=== PATIENT | male | born 1940 | race Caucasian/White ===

== ENCOUNTER 2020-07-22 20:20 | Inpatient (IN) | payer OTHER, MEDICARE ==
[2020-07-22] MEDS ORDERED: DEXAMETHASONE 4 MG TABLET (FP) PO ONE (21:04)
[2020-07-22 21:42] LABS: BASO % 0.3 % (0-2.0); HEMATOCRIT 43.9 % (35.4-49); HEMOGLOBIN 15.1 GM/dL (11.7-16.9); LYMPH % 6.2 % (8-40); MCH 30.4 pg (25.7-33.7); MCHC 34.5 g/dl (32.0-35.9); MEAN PLT VOLUME 7.6 fl (7.5-11.1); MONO % 5.7 % (3.8-10.2); NEUT % 87.8 % (42.8-82.8); PLATELET COUNT 213 K/MM3 (134-434); RBC 4.99 M/mm3 (4.00-5.60); RDW 13.2 % (11.9-15.9); WHITE BLOOD COUNT 7.6 K/mm3 (4.0-10.0)
[2020-07-22 21:47] LABS: INR 1.24 (0.83-1.09); PROTHROMBIN TIME (PATIENT) 14.9 SEC (9.7-13.0)
[2020-07-22 21:50] LABS: ACTIVATED PTT 29.3 SECONDS (25.2-36.5)
[2020-07-22 22:03] LABS: ALBUMIN 2.9 g/dl (3.4-5.0); BLOOD UREA NITROGEN 28.6 mg/dL (7-18)
[2020-07-22 22:06] LABS: CREATININE 1.1 mg/dL (0.55-1.3)
[2020-07-22 22:08] LABS: BILIRUBIN,TOTAL 1.2 mg/dL (0.2-1); TOT PROT 7.5 g/dl (6.4-8.2)
[2020-07-22] MEDS ORDERED: LACTATED RINGERS SOLUTION 1000 ML INFUS.BAG IV ONE (22:49)
[2020-07-23] MEDS ORDERED: AZITHROMYCIN IVPB 250 MG in DEXTROSE 5%-WATER - 250 ML IVPB ONE ×2 (00:30→16:29)
[2020-07-23] MEDS ORDERED: AZITHROMYCIN IVPB 500 MG/250 ML BAG IVPB ONE (01:17)
[2020-07-23 01:20] LABS: EPI CELLS 6 /uL (0-25.1); HYALINE CASTS 2 /uL (0-3.1); URINE APPEARANCE CLOUDY; URINE BACTERIA 230 /uL (0-1359); URINE BILIRUBIN NEGATIVE (NEGATIVE); URINE COLOR DK YELLOW; URINE GLUCOSE (UA) NEGATIVE (NEGATIVE); URINE KETONE NEGATIVE (NEGATIVE); URINE LEUK ESTERASE NEGATIVE (NEGATIVE); URINE NITRITE NEGATIVE (NEGATIVE); URINE PROTEIN 3+ (NEGATIVE); URINE RBC 15 /uL (0-23.9); URINE UROBILINOGEN 0.2 mg/dL (0.2-1.0); URINE WBC 4 /uL (0-25.8)
[2020-07-23 02:23] LABS: VENOUS O2 SATURATION 94.8 % (70-80); VENOUS PCO2 36.4 mmHg (38-52); VENOUS PH 7.477 (7.310-7.410)
[2020-07-23] MEDS: DEXTROSE 5%-0.45% SALINE 1,000 ML IV SCH (02:31)
[2020-07-23 05:18] VITALS: BMI 30.1
[2020-07-23] MEDS ORDERED: ALBUTEROL SO4 2.5/IPRATROPIUM 0.5 INH SOL 3 ML VIAL.NEB. NEB SCH (08:00)
[2020-07-23] MEDS: ALBUTEROL SO4 HFA INHALER IH SCH ×3 (09:48→21:39)
[2020-07-23] MEDS: FAMOTIDINE 20 MG TABLET PO SCH ×2 (09:49→21:26)
[2020-07-23] MEDS: ENOXAPARIN NA (PORCINE) 40 MG/0.4 ML DISP.SYRIN SQ SCH (09:49)
[2020-07-23] MEDS ORDERED: VALSARTAN 80 MG TABLET PO SCH (10:00)
[2020-07-23] MEDS ORDERED: ENOXAPARIN NA (PORCINE) 30 MG/0.3 ML DISP.SYRIN SQ SCH (10:00)
[2020-07-23 10:13] LABS: CALCIUM 8.3 mg/dL (8.5-10.1)
[2020-07-23 10:14] LABS: ALBUMIN 2.5 g/dl (3.4-5.0); BLOOD UREA NITROGEN 25.8 mg/dL (7-18)
[2020-07-23 10:17] LABS: CREATININE 0.9 mg/dL (0.55-1.3)
[2020-07-23 10:18] LABS: BILIRUBIN,TOTAL 1.2 mg/dL (0.2-1)
[2020-07-23 10:19] LABS: TOT PROT 6.2 g/dl (6.4-8.2)
[2020-07-23] MEDS ORDERED: DEXAMETHASONE SOD PHOSPHATE 4 MG/1 ML VIAL IVPUSH ONE (15:53)
[2020-07-23] MEDS ORDERED: POTASSIUM CHLORIDE TABS 20 MEQ TABLET.ER (FP) PO ONE (16:27)
[2020-07-23] MEDS ORDERED: REMDESIVIR 200 MG in SODIUM CHLORIDE 210 ML IVPB ONE (17:00)
[2020-07-23] MEDS: guaiFENesin/D-M SUGAR-FREE/ACLHOL-FREE 118 ML BOTTLE PO PRN (17:43)
[2020-07-24] MEDS: ALBUTEROL SO4 HFA INHALER IH SCH ×3 (09:00→21:37)
[2020-07-24 09:32] LABS: BASO % 0.2 % (0-2.0); HEMATOCRIT 42.1 % (35.4-49); HEMOGLOBIN 14.6 GM/dL (11.7-16.9); MCH 30.4 pg (25.7-33.7); MCHC 34.8 g/dl (32.0-35.9); MEAN CELL VOLUME 87.3 fl (80-96); MONO % 3.2 % (3.8-10.2); NEUT % 90.6 % (42.8-82.8); PLATELET COUNT 255 K/MM3 (134-434); RBC 4.82 M/mm3 (4.00-5.60); WHITE BLOOD COUNT 13.6 K/mm3 (4.0-10.0)
[2020-07-24 09:33] LABS: BLOOD UREA NITROGEN 23.2 mg/dL (7-18); CALCIUM 8.1 mg/dL (8.5-10.1); MAGNESIUM 2.1 mg/dL (1.8-2.4)
[2020-07-24 09:36] LABS: CREATININE 0.9 mg/dL (0.55-1.3)
[2020-07-24] MEDS: DEXTROSE 5%-0.45% SALINE 1,000 ML IV SCH ×2 (10:10→21:35)
[2020-07-24] MEDS: ENOXAPARIN NA (PORCINE) 40 MG/0.4 ML DISP.SYRIN SQ SCH (10:10)
[2020-07-24] MEDS: DEXAMETHASONE SOD PHOSPHATE 4 MG/1 ML VIAL IVPUSH SCH (10:10)
[2020-07-24] MEDS: FAMOTIDINE 20 MG TABLET PO SCH ×2 (10:10→21:36)
[2020-07-24] MEDS: guaiFENesin/D-M SUGAR-FREE/ACLHOL-FREE 118 ML BOTTLE PO PRN (10:11)
[2020-07-24] MEDS ORDERED: ACETAMINOPHEN 325 MG TABLET (FP) ONE (10:23)
[2020-07-24] MEDS ORDERED: ACETAMINOPHEN 325 MG TABLET (FP) PO PRN (11:13)
[2020-07-24] MEDS: REMDESIVIR 100 MG in SODIUM CHLORIDE 230 ML IVPB SCH (17:59)
[2020-07-25] MEDS: guaiFENesin/D-M SUGAR-FREE/ACLHOL-FREE 118 ML BOTTLE PO PRN (05:51)
[2020-07-25] MEDS ORDERED: PT OWN MED DRAWER 7, Y5N ONE ×2 (06:15→18:36)
[2020-07-25 08:45] LABS: HEMATOCRIT 40.6 % (35.4-49); MCH 30.5 pg (25.7-33.7); MCHC 34.6 g/dl (32.0-35.9); MEAN CELL VOLUME 88.2 fl (80-96); MEAN PLT VOLUME 7.8 fl (7.5-11.1); PLATELET COUNT 235 K/MM3 (134-434); RDW 13.1 % (11.9-15.9); WHITE BLOOD COUNT 9.7 K/mm3 (4.0-10.0)
[2020-07-25 09:06] LABS: CALCIUM 8.5 mg/dL (8.5-10.1)
[2020-07-25 09:07] LABS: BLOOD UREA NITROGEN 22.5 mg/dL (7-18)
[2020-07-25 09:09] LABS: CREATININE 0.9 mg/dL (0.55-1.3)
[2020-07-25] MEDS: DEXAMETHASONE SOD PHOSPHATE 4 MG/1 ML VIAL IVPUSH SCH (11:42)
[2020-07-25] MEDS: AZITHROMYCIN IVPB 250 MG in DEXTROSE 5%-WATER - 250 ML IVPB SCH (11:42)
[2020-07-25] MEDS: ALBUTEROL SO4 HFA INHALER IH SCH ×3 (11:46→21:32)
[2020-07-25] MEDS: ENOXAPARIN NA (PORCINE) 40 MG/0.4 ML DISP.SYRIN SQ SCH (11:53)
[2020-07-25] MEDS: FAMOTIDINE 20 MG TABLET PO SCH ×2 (11:53→21:32)
[2020-07-25] MEDS ORDERED: KCL 10 MEQ IVPB 10 MEQ/100 ML INFUS.BAG IVPB ONE (15:45)
[2020-07-25] MEDS: REMDESIVIR 100 MG in SODIUM CHLORIDE 230 ML IVPB SCH (17:30)
[2020-07-25] MEDS ORDERED: guaiFENesin/D-M SUGAR-FREE/ACLHOL-FREE 118 ML BOTTLE PO STA (17:59)
[2020-07-25] MEDS: DEXTROSE 5%-0.45% SALINE 1,000 ML IV SCH (18:43)
[2020-07-26] MEDS ORDERED: PT OWN MED DRAWER 7, Y5N ONE (05:19)
[2020-07-26] MEDS: ALBUTEROL SO4 HFA INHALER IH SCH ×2 (09:30→15:51)
[2020-07-26] MEDS: AZITHROMYCIN IVPB 250 MG in DEXTROSE 5%-WATER - 250 ML IVPB SCH (09:30)
[2020-07-26] MEDS: DEXAMETHASONE SOD PHOSPHATE 4 MG/1 ML VIAL IVPUSH SCH (09:30)
[2020-07-26] MEDS: ENOXAPARIN NA (PORCINE) 40 MG/0.4 ML DISP.SYRIN SQ SCH ×2 (09:31→21:54)
[2020-07-26] MEDS: FAMOTIDINE 20 MG TABLET PO SCH (09:31)
[2020-07-26 09:44] LABS: CALCIUM 8.6 mg/dL (8.5-10.1)
[2020-07-26 09:45] LABS: BLOOD UREA NITROGEN 25.4 mg/dL (7-18)
[2020-07-26 09:48] LABS: CREATININE 0.8 mg/dL (0.55-1.3)
[2020-07-26] MEDS ORDERED: dilTIAZem HCL 50 MG/10 ML - 10 ML VIAL IVPUSH ONE (16:45)
[2020-07-26] MEDS ORDERED: dilTIAZem HCL 25 MG/5 ML - 5 ML VIAL ONE (16:50)
[2020-07-26] MEDS: REMDESIVIR 100 MG in SODIUM CHLORIDE 230 ML IVPB SCH (16:52)
[2020-07-26] MEDS: DEXTROSE 5%-0.45% SALINE 1,000 ML IV SCH ×2 (17:15→21:53)
[2020-07-26 18:17] LABS: CALCIUM 8.9 mg/dL (8.5-10.1)
[2020-07-26 18:18] LABS: ALBUMIN 2.4 g/dl (3.4-5.0); BLOOD UREA NITROGEN 30.3 mg/dL (7-18); MAGNESIUM 2.4 mg/dL (1.8-2.4)
[2020-07-26 18:21] LABS: PHOSPHOROUS 3.6 mg/dL (2.5-4.9)
[2020-07-26 18:22] LABS: TOT PROT 6.6 g/dl (6.4-8.2)
[2020-07-26] MEDS ORDERED: ACETAMINOPHEN 1000 MG/100 ML BAG IVPB PRN (18:33)
[2020-07-26] MEDS: LORazepam 2 MG/ML SDV VIAL IVPUSH SCH (21:54)
[2020-07-26] MEDS: FAMOTIDINE 20 MG/50 ML IVPB 20 MG/50 ML MG IVPB SCH (21:55)
[2020-07-26 23:56] LABS: ARTERIAL BLD GAS O2 SATURATION 88.9 mmHg (95-98); ARTERIAL BLOOD GAS PO2 55.7 mmHg (80-100); ARTERIAL BLOOD GAS pH 7.393 (7.350-7.450)
[2020-07-27] LABS: ALLENS TEST POSITIVE
[2020-07-27 00:01] LABS: VENT RATE 18
[2020-07-27] MEDS ORDERED: LORazepam 2 MG/ML SDV VIAL ONE (00:59)
[2020-07-27] MEDS ORDERED: LORazepam 2 MG/ML SDV VIAL IVPUSH ONE ×2 (01:07→03:43)
[2020-07-27 06:08] LABS: ARTERIAL BLOOD GAS BASE EXCESS 2.7 mmol/L (-2-2); ARTERIAL BLOOD GAS PO2 46.5 mmHg (80-100); ARTERIAL BLOOD GAS pH 7.397 (7.350-7.450)
[2020-07-27 06:09] LABS: ALLENS TEST POSITIVE
[2020-07-27 06:10] LABS: VENT MODE S/T; VENT RATE 20
[2020-07-27 07:24] LABS: HEMATOCRIT 44.8 % (35.4-49); HEMOGLOBIN 15.2 GM/dL (11.7-16.9); MCH 30.2 pg (25.7-33.7); MCHC 33.9 g/dl (32.0-35.9); MEAN CELL VOLUME 88.9 fl (80-96); MEAN PLT VOLUME 7.9 fl (7.5-11.1); PLATELET COUNT 125 K/MM3 (134-434); RBC 5.04 M/mm3 (4.00-5.60); RDW 13.2 % (11.9-15.9); WHITE BLOOD COUNT 18.5 K/mm3 (4.0-10.0)
[2020-07-27 07:46] LABS: ALBUMIN 2.3 g/dl (3.4-5.0)
[2020-07-27 07:47] LABS: BLOOD UREA NITROGEN 46.2 mg/dL (7-18)
[2020-07-27 07:50] LABS: CREATININE 1.3 mg/dL (0.55-1.3)
[2020-07-27 07:51] LABS: BILIRUBIN,TOTAL 1.2 mg/dL (0.2-1); TOT PROT 6.3 g/dl (6.4-8.2)
[2020-07-27] MEDS: ALBUTEROL SO4 HFA INHALER IH SCH (09:55)
[2020-07-27] MEDS: ENOXAPARIN NA (PORCINE) 40 MG/0.4 ML DISP.SYRIN SQ SCH (09:55)
[2020-07-27] MEDS: DEXAMETHASONE SOD PHOSPHATE 4 MG/1 ML VIAL IVPUSH SCH (09:55)
[2020-07-27] MEDS: LORazepam 2 MG/ML SDV VIAL IVPUSH SCH (09:56)
[2020-07-27] MEDS ORDERED: CEFTRIAXONE 1,000 GM in DEXTROSE 5%-WATER - 50 ML IVPB SCH (10:00)
[2020-07-27 10:08] LABS: ERYTHROCYTE SEDIMENTATION RATE 23 mm/hr (0-20)
[2020-07-27] MEDS ORDERED: RAPID SEQUENCE INTUBATION KIT NR ONE (10:31)
[2020-07-27] MEDS: FAMOTIDINE 20 MG/50 ML IVPB 20 MG/50 ML MG IVPB SCH (10:40)
[2020-07-27] MEDS: AZITHROMYCIN IVPB 250 MG in DEXTROSE 5%-WATER - 250 ML IVPB SCH (10:40)
[2020-07-27] MEDS ORDERED: PROPOFOL 1,000,000 MCG/100 ML VIAL IVPB SCH (12:00)
[2020-07-27] MEDS ORDERED: VECURONIUM BROMIDE 100 MG/100 ML BAG IVPB SCH (12:00)
[2020-07-27 13:20] VITALS: BP 130/75; PULSE 85; TEMP 98
== END 2020-07-27 12:00 | disposition expired | DRG 208 ==
LOC: JER 20:20 → JERBED 07-23 00:20 → J6S 07-23 04:18 → JICU 07-26 16:38
PROVIDERS: ADMIT Internal Medicine; ATTEND Internal Medicine
PROC: XW033E5 Introduction of Remdesivir Anti-infective into Peripheral Vein, Percutaneous Approach, New Technology Group 5 (ICD-10-PCS; 2020-07-24)
PROC: XW13325 Transfusion of Convalescent Plasma (Nonautologous) into Peripheral Vein, Percutaneous Approach, New Technology Group 5 (ICD-10-PCS; 2020-07-24)
PROC: 5A1935Z Respiratory Ventilation, Less than 24 Consecutive Hours (ICD-10-PCS; principal; 2020-07-27)
PROC: 0BH17EZ Insertion of Endotracheal Airway into Trachea, Via Natural or Artificial Opening (ICD-10-PCS; 2020-07-27)
PROC: 5A12012 Performance of Cardiac Output, Single, Manual (ICD-10-PCS; 2020-07-27)
DX: U07.1 COVID-19 (principal); J12.82 Pneumonia due to coronavirus disease 2019; J96.01 Acute respiratory failure with hypoxia; I47.1 Supraventricular tachycardia; I10 Essential (primary) hypertension; E87.6 Hypokalemia; K76.0 Fatty (change of) liver, not elsewhere classified; I46.9 Cardiac arrest, cause unspecified; I48.91 Unspecified atrial fibrillation; F41.9 Anxiety disorder, unspecified; E66.9 Obesity, unspecified; Z68.30 Body mass index [BMI] 30.0-30.9, adult
CPT/HCPCS: 36415; 36430; 36600; 71045-TC-FY; 80048; 80053; 81003; 82550; 82553; 82728; 82803; 83605; 83615; 83735; 84100; 84484; 85025; 85027; 85379; 85610; 85651; 85730; 86140; 86850; 86900; 86901; 87040; 87086; 87426; 93005; 93010; 94660; 99285-25; C9399; P9017